=== PATIENT | female | born 1985 | race African-American/Black ===

== ENCOUNTER 2019-06-12 13:59 | Emergency (ER) | payer OTHER ==
[~2019-06-12] VITALS: Ht 149.9 cm; Wt 130.0 kg
--- NOTE | ~2019-06-12 | EKG ---
[place] [address] ELECTROCARDIOGRAM REPORT Name: RIANA SMITH Room: [facility]#: [id number] Admission: Attend Phys: Discharge: Date of : 85 Date of Service: 06/12/191406 Report #: [id number] THIS REPORT FOR: cc: Angie Adams MD ~ THIS REPORT FOR: //name// [facility] ED Test Date: 2019-06-12 Test Time: 14:07:15 Pat Name: RIANA SMITH Department: Room: Gender: F Commercial Director: : 1985 Requested By: Jameson Gee Order Number: [id number] MD: Measurements Intervals [place] Rate: 92 P: 62 LA: 180 QRS: 43 QRSD: 109 T: 3 QT: 357 QTc: 442 Interpretive Statements Sinus rhythm Borderline T abnormalities, inferior leads Baseline wander in lead(s) V2 No previous ECG available for comparison [email or web address] By: 06 1407 Epiphany EpiphanyMD /EPI
[2019-06-12] MEDS ORDERED: PLAVIX 75 MG TA75 MG PO (14:12)
[2019-06-12] MEDS ORDERED: ASA81BEC PO (14:12)
[2019-06-12] MEDS ORDERED: COUMADIN7.5 MG PO (14:12)
[2019-06-12] MEDS ORDERED: LIPITOR40 MG PO (14:13)
[2019-06-12] MEDS ORDERED: LASIX 40 MG TAB40 MG PO (14:13)
[2019-06-12] MEDS ORDERED: CARVEDILOL12.5 MG PO (14:13)
[2019-06-12] MEDS ORDERED: FOLIC ACID1 MG PO (14:14)
[2019-06-12] MEDS ORDERED: AMBIEN 10 MG TA10 MG PO (14:14)
[2019-06-12] MEDS ORDERED: PLAQUENIL200 MG PO (14:14)
[2019-06-12] MEDS ORDERED: POTASSIUM20 PO (14:14)
[2019-06-12] MEDS ORDERED: GEODON80 MG PO (14:15)
[2019-06-12] MEDS ORDERED: VISTARIL50 MG PO (14:15)
[2019-06-12] MEDS ORDERED: CYMBALTA60 MG PO (14:15)
[2019-06-12] MEDS ORDERED: HYDREA 500 MG500 M1 PO (14:15)
[2019-06-12] MEDS ORDERED: DIPHENHIST50 MG PO (14:16)
[2019-06-12] MEDS ORDERED: QUETIAPINE FUM300 M1 PO (14:16)
[2019-06-12] MEDS ORDERED: DILAUDID1 MG/1 M1 PO (14:17)
[2019-06-12] MEDS ORDERED: TEGRETOL XR400 MG PO (14:17)
[2019-06-12] MEDS ORDERED: FLEXERIL PO (14:17)
[2019-06-12] MEDS ORDERED: NEURONTIN100 MG PO (14:17)
[2019-06-12 14:39] LABS: HEMATOCRIT 29.9 % (37.0-47.0); HEMOGLOBIN 9.9 gm/dL (12.0-15.0); MCH 30.6 pg (26.0-34.0); MCHC 33.1 g/dL (28.0-37.0); MCV 92.5 fL (80.0-100.0); MPV 6.4 fl. (7.2-11.1); NUCLEATED RBCS 0 /100WBC; PLATELET COUNT* 692 thou/uL (150-400); RBC 3.23 mil/uL (4.20-5.00); RDW-CV 17.2 % (10.5-14.5); WBC 5.4 thou/uL (4.0-11.0)
[2019-06-12 14:50] LABS: ANION GAP 8 mmol/L (7-16); BUN 8 mg/dL (7-18); CALCIUM 8.1 mg/dL (8.5-10.1); CHLORIDE 102 mmol/L (98-107); CO2 29 mmol/L (21-32); CREATININE 0.6 mg/dL (0.6-1.3); GLUCOSE 91 mg/dL (70-99); POTASSIUM 3.5 mmol/L (3.5-5.1); SODIUM 139 mmol/L (136-145)
[2019-06-12 15:00] LABS: APTT 46.2 Seconds (25.0-31.3); INR 2.1; PROTIME 21.4 Seconds (9.20-11.50)
[2019-06-12 15:03] LABS: ALBUMIN 3.1 g/dL (3.4-5.0); ALKALINE PHOSPHATASE 167 U/L (46-116); CK-MB MASS < 0.5 ng/mL (<0.5-3.6); LIPASE 71 U/L (73-393); MAGNESIUM 1.6 mg/dL (1.8-2.4); NT-PRO BRAIN NAT PEPTIDE 418 pg/mL (<300); SGOT 26 U/L (15-37); SGPT 35 U/L (30-65); TOTAL BILIRUBIN 0.2 mg/dL (<0.1-1.0); TOTAL PROTEIN 7.6 g/dL (6.4-8.2)
[2019-06-12 16:18] LABS: ABSOLUTE EOSINOPHILS 0.1 thou/uL (0.0-0.7); ABSOLUTE LYMPHOCYTES 0.9 thou/uL (0.8-5.3); ABSOLUTE MONOCYTES 0.1 thou/uL (0.0-1.2); ABSOLUTE NEUTROPHILS 4.4 thou/uL (1.6-8.1); PLATELET ESTIMATE ADEQUATE
[2019-06-12] MEDS ORDERED: DURAGESIC1 EAC3 TRANSDERM (17:13)
[2019-06-12 17:45] VITALS: BP 134/73
== END 2019-06-12 17:45 | disposition home or self-care (01) ==
LOC: M.ERS 13:59
PROVIDERS: Family Medicine
DX: K91.873 Postprocedural seroma of a digestive system organ or structure following other procedure (principal); G89.29 Other chronic pain; R11.2 Nausea with vomiting, unspecified; I50.9 Heart failure, unspecified; Z90.81 Acquired absence of spleen; Z95.2 Presence of prosthetic heart valve; Z88.6 Allergy status to analgesic agent; Z88.8 Allergy status to other drugs, medicaments and biological substances; Z91.041 Radiographic dye allergy status